=== PATIENT | female | born 1960 | race Caucasian/White ===

== ENCOUNTER → 2023-04-13 15:48 | Outpatient (CLI) | payer OTHER, SELFPAY | PROVIDERS: Visit Provider Physician Assistant | DX: R35.0 Frequency of micturition (principal) | CPT/HCPCS: 87086 ==

== ENCOUNTER 2023-04-14 16:08 | Emergency (ER) | payer OTHER, SELFPAY ==
[2023-04-14 16:12] VITALS: BP 160/93; PULSE 98; RESP 16; TEMP 37; O2SAT 97; BMI 32.5
--- NOTE | 2023-04-14 16:21 | ED.ABDPAIN ---
HPI - Abdominal Pain <CEDRICK Solares - Last Filed: 04/14/23 18:02> General Chief Complaint: Abdominal Pain Stated Complaint: possible kidney stone wc suggested to come for ct Time Seen by Provider: 04/14/23 16:20 Source: patient Mode of arrival: Ambulatory History of Present Illness HPI narrative: 63-year-old female, former smoker, presents to the emergency department with right flank pain x1 week with incontinence dark urine x4 days. Patient thought that she had initially strained her back during an exercise class. Patient presented to the walk-in clinic yesterday, urine dip revealed positive blood, and was told to come to the emergency department for kidney stone workup. No history of kidney stones. Related Data Home Medications Medication Instructions Recorded Confirmed levothyroxine 112 mcg capsule 112 mcg PO DAILY 04/13/23 04/13/23 (Tirosint) Previous Rx's Medication Instructions Recorded nitrofurantoin 100 mg PO Q12H 5 days #10 caps 04/14/23 monohydrate/macrocrystals 100 mg capsule (Macrobid) Allergies Allergy/AdvReac Type Severity Reaction Status Date / Time latex Allergy Verified 04/13/23 15:38 codeine AdvReac Verified 04/13/23 15:38 Review of Systems <CEDRICK Solares - Last Filed: 04/14/23 18:02> Review of Systems Narrative: Narrative: See HPI. GENERAL: Denies chills, fatigue, fever, sweats. HEENT: Denies sinus pain, ear pain, sore throat, difficulty swallowing, dizziness. RESPIRATORY: Denies dyspnea, cough, wheezing, sputum. CARDIOVASCULAR: Denies chest pain, palpitations, edema. GASTROINTESTINAL: Denies nausea, vomiting, abdominal pain, diarrhea, constipation. : Denies dysuria, frequency, urinary retention, vaginal itching, bleeding or discharge. Endorses incontinence, hematuria and right flank pain that is radiating to right groin. MSK: Denies weakness, joint pain, or bony pain. SKIN: Denies rash, skin lesions, or pruritis. NEUROLOGIC: Denies weakness, dizziness, headache, numbness, confusion. PSYCHIATRIC: No concerning psychosocial issues. Patient History <CEDRICK Solares - Last Filed: 04/14/23 18:02> Social History Smoking Status: Former smoker Smoking Status: Former smoker Substance Use Type: does not use Exam <CEDRICK Solares - Last Filed: 04/14/23 18:02> Narrative Exam Narrative: Exam Narrative: GENERAL: This is a well-nourished, well-developed patient, in no acute distress. HEAD: Atraumatic. Normocephalic. EYES: Pupils equal round and reactive. Extraocular motions intact. No scleral icterus, injection or drainage. ENT: Nose without bleeding, purulent drainage. Throat without erythema, tonsillar hypertrophy or exudate. Uvula midline. Airway patent. NECK: Trachea midline. No JVD. CARDIOVASCULAR: Regular rate and rhythm without murmurs, peripheral pulses intact, cap refill <2 sec. RESPIRATORY: Breath sounds equal and clear bilaterally. No wheezes, rales, or rhonchi. No cough. No increased respiratory effort. No accessory muscle use. GASTROINTESTINAL: Abdomen soft, mild right lower quadrant tenderness, nondistended without guarding or rebound. No suprapubic pain. No CVA tenderness. MSK: Moves all extremities. Normal range of motion, no clubbing or edema. Neurovascularly intact. NEURO: A&O x 3. SKIN: Warm, dry, no rashes or lesions noted. Initial Vital Signs Initial Vital Signs: Vital Signs Temperature 98.6 F 04/14/23 16:12 Pulse Rate 98 H 04/14/23 16:12 Respiratory Rate 16 04/14/23 16:12 Blood Pressure 160/93 H 04/14/23 16:12 Pulse Oximetry 97 04/14/23 16:12 Oxygen Delivery Method Room Air 04/14/23 16:12 Reviewed <Anel Singer DO - Last Filed: 04/15/23 07:51> Initial Vital Signs Initial Vital Signs: Vital Signs Temperature 98.6 F 04/14/23 16:12 Pulse Rate 98 H 04/14/23 16:12 Respiratory Rate 16 04/14/23 16:12 Blood Pressure 160/93 H 04/14/23 16:12 Pulse Oximetry 97 04/14/23 16:12 Oxygen Delivery Method Room Air 04/14/23 16:12 Course <CEDRICK Solares - Last Filed: 04/14/23 18:02> Orders Ordered: Discontinued Medications Nitrofurantoin Macrocrystals (Nitrofurantoin Er 100 Mg Capsule) 100 mg PO NOW ONE Stop: 04/14/23 18:13 Last Admin: 04/14/23 18:16 Dose: 100 mg Documented By: SPF Ondansetron HCl (Ondansetron 4 Mg Odt) 4 mg PO NOW PRN PRN Reason: Nausea And Vomiting Ondansetron HCl (Ondansetron 4 Mg/2 Ml Inj) 4 mg IV NOW PRN PRN Reason: Nausea And Vomiting Vital Signs Vital signs: Vital Signs - 8 hr 04/14/23 16:12 04/14/23 17:31 04/14/23 17:31 Temperature 98.6 F Pulse Rate 98 H 87 Respiratory Rate 16 Blood Pressure 160/93 H 181/93 H Pulse Oximetry 97 98 Oxygen Delivery Method Room Air Room Air <Anel Singer DO - Last Filed: 04/15/23 07:51> Orders Ordered: Discontinued Medications Nitrofurantoin Macrocrystals (Nitrofurantoin Er 100 Mg Capsule) 100 mg PO NOW ONE Stop: 04/14/23 18:13 Last Admin: 04/14/23 18:16 Dose: 100 mg Documented By: SPF Ondansetron HCl (Ondansetron 4 Mg Odt) 4 mg PO NOW PRN PRN Reason: Nausea And Vomiting Ondansetron HCl (Ondansetron 4 Mg/2 Ml Inj) 4 mg IV NOW PRN PRN Reason: Nausea And Vomiting Vital Signs Vital signs: Vital Signs - 8 hr 04/14/23 16:12 04/14/23 17:31 04/14/23 17:31 Temperature 98.6 F Pulse Rate 98 H 87 Respiratory Rate 16 Blood Pressure 160/93 H 181/93 H Pulse Oximetry 97 98 Oxygen Delivery Method Room Air Room Air MDM - Abdominal Pain <CEDRICK Solares - Last Filed: 04/14/23 18:02> Differential Diagnosis Differential diagnosis: Likely abdominal pain, acute appendicitis, calculus of kidney, small bowel obstruction and other (uti, pyelonephritis) Lab Data 04/14/23 16:45 04/14/23 16:45 Labs: Lab Results 04/14/23 Range/Units 16:45 WBC 10.4 (4.5-11.0) X10^3/uL RBC 4.61 (4.0-5.2) X10^6/uL Hgb 13.9 (12.0-16.0) g/dL Hct 40.3 (36-46) % MCV 87.5 (80-100) fL MCH 30.2 (26-34) PG MCHC 34.5 (30-36) % RDW 12.8 (11.6-14.8) % Plt Count 222 (150-400) X10^3/uL Neut % (Auto) 76.0 H (50-75) % Lymph % (Auto) 15.6 L (25-40) % Crowley % (Auto) 6.1 (3-14) % Eos % (Auto) 1.8 L (2-4) % Baso % (Auto) 0.5 (0-2) % Neut # (Auto) 7900 H (3055-4650) /uL Lymph # (Auto) 1600 (3932-9013) /uL Crowley # (Auto) 600 (0-900) /uL Eos # (Auto) 200 (0-450) /uL Baso # (Auto) 0 (0-100) /uL Sodium 137 (137-145) mmol/L Potassium 3.9 (3.4-5.1) mmol/L Chloride 107 (98-107) mmol/L Carbon Dioxide 22 (22-32) mmol/L BUN 16 (7-17) mg/dL Creatinine 0.64 (0.52-1.04) mg/dL Estimated GFR > 60 (>60) mL/min BUN/Creatinine Ratio 25.0 H (6-22) Glucose 94 (80-110) mg/dL Calcium 9.0 (8.4-10.2) mg/dL Total Bilirubin 0.3 (0.2-1.3) mg/dL AST 42 H (14-36) IU/L ALT 47 H (<35) IU/L Alkaline Phosphatase 91 (38-126) U/L Total Protein 6.7 (6.3-8.2) g/dL Albumin 4.1 (3.5-5.0) g/dL Globulin 2.6 (1.7-4.1) g/dL Albumin/Globulin Ratio 1.6 (1.0-2.8) Lipase 73 (23-300) U/L TSH 0.07 L (0.47-4.68) uIU/mL Free T4 1.40 (0.78-2.19) ng/dL Urine RBC 5-10/hpf H (0-5/HPF) Urine WBC 5-10/hpf H (0-5/HPF) Ur Squamous Epith Cells 0-1 /hpf (0-5/HPF) Calcium Oxalate Crystal Few H Urine Bacteria Occasional (0-1) (None) Urine Mucus 1+ H (Negative) Ur Culture Indicated? Specimen cultured Point of care testing: Urine Dip Bedside Urine Glucose Negative Bedside Urine Bilirubin - Negative Bedside Urine Ketone - Negative Urine Specific Bradley 1.015 Bedside Urine Occult Blood +++ Bedside Urine pH 6.0 Bedside Urine Protein +/- 15 Bedside Urine Urobilinogen - Negative Bedside Urine Nitrite - Negative Bedside Urine Leukocytes + [address] scan - abdomen/pelvis: Radiologist's Impression: [address] [address] [address] Scan Report Signed Patient: Tanya Bran MR#: [id number] : 1960 Acct:[id number] Age/Sex: 63 / F Date of Service: 04/14/23 Loc: ED Accession Number: [id number] Procedure: CT abdomen pelvis w con Ordering Provider: Deo Gallegos PROCEDURE: CT ABDOMEN PELVIS W CON INDICATIONS: 63-year-old female with 3 day history of incontinence, hematuria, right flank pain. History of hysterectomy, thyroid cancer 2017 TECHNIQUE: After the administration of intravenous contrast, axial sections acquired from the lung bases to the pubic symphysis. Coronal and sagittal reformats were performed. For radiation dose reduction, the following was used: automated exposure control, adjustment of mA and/or kV according to patient size. COMPARISON: None. FINDINGS: Lower thorax: The lung bases are clear. Heart size normal. No hiatal hernia. Liver: Normal in size and attenuation. No contour deformity present. Biliary system: No calcified cholelithiasis or pericholecystic inflammation. No intra or extrahepatic bile duct dilatation. Pancreas: Unremarkable without mass or inflammation evident. Spleen: Normal in size and density. Adrenals: Normal morphology and density. Reproductive system: Hysterectomy. Urinary system: Normal renal size and attenuation. No renal calculi, hydronephrosis, or solid mass present. Urinary bladder unremarkable. Gastrointestinal system: The bowel is unremarkable without evidence of bowel obstruction or inflammation. The stomach appears unremarkable. Multiple diverticula arise from the sigmoid colon without evidence of diverticulitis. Appendix: Normal appendix identified. No evidence of appendicitis. Peritoneal spaces: No mesenteric or retroperitoneal adenopathy. No free air. No free fluid. Vasculature: The IVC, aorta and iliac vasculature are unremarkable. Abdominal wall: Abdominal wall intact without evidence of ventral or inguinal hernias. Musculoskeletal: Normal bone mineralization. Degenerative disc disease and arthropathy noted in lower lumbar spine. No acute fractures. IMPRESSION: 1. No acute CT findings in the abdomen and pelvis. Normal appendix. No obstructive uropathy or nephrolithiasis. Approved by: Janes Loredo M.D. on 04/14/2023 at 16:17 MDM Narrative Medical decision making narrative: 63-year-old female with radiating right flank pain and incontinence x4 days. Assessment was inconclusive and not sure what is causing her discomfort. CT reveals no abnormalities. Baseline labs were not concerning. Point of care urine dip was consistent with UTI, positive blood and leuks. Will treat with Macrobid for 5 days. Discussed plan of care and return precautions with patient, who verbalized understanding and was agreeable with course of action. <Anel Singer, DO - Last Filed: 04/15/23 07:51> Lab Data Labs: Lab Results 04/14/23 Range/Units 16:45 WBC 10.4 (4.5-11.0) X10^3/uL RBC 4.61 (4.0-5.2) X10^6/uL Hgb 13.9 (12.0-16.0) g/dL Hct 40.3 (36-46) % MCV 87.5 (80-100) fL MCH 30.2 (26-34) PG MCHC 34.5 (30-36) % RDW 12.8 (11.6-14.8) % Plt Count 222 (150-400) X10^3/uL Neut % (Auto) 76.0 H (50-75) % Lymph % (Auto) 15.6 L (25-40) % Crowley % (Auto) 6.1 (3-14) % Eos % (Auto) 1.8 L (2-4) % Baso % (Auto) 0.5 (0-2) % Neut # (Auto) 7900 H (7562-7739) /uL Lymph # (Auto) 1600 (9398-2610) /uL Crowley # (Auto) 600 (0-900) /uL Eos # (Auto) 200 (0-450) /uL Baso # (Auto) 0 (0-100) /uL Sodium 137 (137-145) mmol/L Potassium 3.9 (3.4-5.1) mmol/L Chloride 107 (98-107) mmol/L Carbon Dioxide 22 (22-32) mmol/L BUN 16 (7-17) mg/dL Creatinine 0.64 (0.52-1.04) mg/dL Estimated GFR > 60 (>60) mL/min BUN/Creatinine Ratio 25.0 H (6-22) Glucose 94 (80-110) mg/dL Calcium 9.0 (8.4-10.2) mg/dL Total Bilirubin 0.3 (0.2-1.3) mg/dL AST 42 H (14-36) IU/L ALT 47 H (<35) IU/L Alkaline Phosphatase 91 (38-126) U/L Total Protein 6.7 (6.3-8.2) g/dL Albumin 4.1 (3.5-5.0) g/dL Globulin 2.6 (1.7-4.1) g/dL Albumin/Globulin Ratio 1.6 (1.0-2.8) Lipase 73 (23-300) U/L TSH 0.07 L (0.47-4.68) uIU/mL Free T4 1.40 (0.78-2.19) ng/dL Urine RBC 5-10/hpf H (0-5/HPF) Urine WBC 5-10/hpf H (0-5/HPF) Ur Squamous Epith Cells 0-1 /hpf (0-5/HPF) Calcium Oxalate Crystal Few H Urine Bacteria Occasional (0-1) (None) Urine Mucus 1+ H (Negative) Ur Culture Indicated? Specimen cultured Point of care testing: Urine Dip Bedside Urine Glucose Negative Bedside Urine Bilirubin - Negative Bedside Urine Ketone - Negative Urine Specific Bradley 1.015 Bedside Urine Occult Blood +++ Bedside Urine pH 6.0 Bedside Urine Protein +/- 15 Bedside Urine Urobilinogen - Negative Bedside Urine Nitrite - Negative Bedside Urine Leukocytes + 70 Esterase Discharge Plan Departure Patient Disposition: Home Clinical Impression: UTI (urinary tract infection) Qualifiers: Urinary tract infection type: acute cystitis Hematuria presence: with hematuria Qualified Code(s): N30.01 - Acute cystitis with hematuria Instructions: DI for Urinary Tract Infection (UTI) Activity Restrictions/Additional Instructions: *You have been diagnosed with a urinary tract infection. Point of care urine dip was consistent with UTI and we will treat you with Macrobid for [address] was normal and no sign of appendicitis or kidney stones. Please make sure you drink plenty of water and take the antibiotics as prescribed. For any worsening symptoms that include chest pain, shortness of breath, intolerable pain, etc. please return to the emergency department. Otherwise, please follow-up with your family doctor as needed. *What to do: *Please continue to take your regular medications as directed. [x ] New medication prescriptions sent to your pharmacy: [[facility]] [ ] New medication written as a paper prescription [ ] No new medications given *Please follow up with your primary care provider in 2-3 days, call for an appointment. Let them know you were seen in the Emergency Department and that we ask that you be seen in follow up. We will electronically transmit a record of today's note if your PCP is in our system *If you do not have a primary care provider please contact the [facility] Resource line at [phone]. They will ask some questions about your medical history and help get you set up with a doctor in the community. ? Return to ER if you should have any new, worsening or concerning symptoms, such as worsening pain, severe headache, confusion, chest pain, difficulty breathing, fever greater than 101 F, shaking chills, persistent vomiting to the point that you cannot drink fluids, or other new or worsening symptoms. Prescriptions: New nitrofurantoin monohyd/m-cryst [Macrobid] 100 mg capsule 100 mg PO Q12H 5 Days Qty: 10 0RF Rx Instructions: must administer with a meal/food No Action levothyroxine [Tirosint] 112 mcg capsule 112 mcg PO DAILY Referrals: Miscellaneous,DoctorMD [Primary Care Provider] - Stand Alone Forms: Patient Portal/API ED Sign-out <Anel Singer DO - Last Filed: 04/15/23 07:51> Cosign ED Attending Mendelature Attestation: I was immediately available in the department for consultation. Documentation has been reviewed.
--- NOTE | 2023-04-14 16:31 | DI.CT.S_ITS ---
PROCEDURE: CT ABDOMEN PELVIS W CON INDICATIONS: 63-year-old female with 3 day history of incontinence, hematuria, right flank pain. History of hysterectomy, thyroid cancer 2017 TECHNIQUE: After the administration of intravenous contrast, axial sections acquired from the lung bases to the pubic symphysis. Coronal and sagittal reformats were performed. For radiation dose reduction, the following was used: automated exposure control, adjustment of mA and/or kV according to patient size. COMPARISON: None. FINDINGS: Lower thorax: The lung bases are clear. Heart size normal. No hiatal hernia. Liver: Normal in size and attenuation. No contour deformity present. Biliary system: No calcified cholelithiasis or pericholecystic inflammation. No intra or extrahepatic bile duct dilatation. Pancreas: Unremarkable without mass or inflammation evident. Spleen: Normal in size and density. Adrenals: Normal morphology and density. Reproductive system: Hysterectomy. Urinary system: Normal renal size and attenuation. No renal calculi, hydronephrosis, or solid mass present. Urinary bladder unremarkable. Gastrointestinal system: The bowel is unremarkable without evidence of bowel obstruction or inflammation. The stomach appears unremarkable. Multiple diverticula arise from the sigmoid colon without evidence of diverticulitis. Appendix: Normal appendix identified. No evidence of appendicitis. Peritoneal spaces: No mesenteric or retroperitoneal adenopathy. No free air. No free fluid. Vasculature: The IVC, aorta and iliac vasculature are unremarkable. Abdominal wall: Abdominal wall intact without evidence of ventral or inguinal hernias. Musculoskeletal: Normal bone mineralization. Degenerative disc disease and arthropathy noted in lower lumbar spine. No acute fractures. IMPRESSION: 1. No acute CT findings in the abdomen and pelvis. Normal appendix. No obstructive uropathy or nephrolithiasis. Approved by: Janes Loredo M.D. on 04/14/2023 at 16:17
[2023-04-14 17:17] LABS: Alanine Aminotransferase 47 IU/L (<35); Albumin 4.1 g/dL (3.5-5.0); Albumin Globulin Ratio 1.6 (1.0-2.8); Alkaline Phosphatase 91 U/L (38-126); Aspartate Aminotransferase 42 IU/L (14-36); Bilirubin Total 0.3 mg/dL (0.2-1.3); Blood Urea Nitrogen 16 mg/dL (7-17); Carbon Dioxide 22 mmol/L (22-32); Chloride 107 mmol/L (98-107); Estimated Glomerular Filt Rate > 60 mL/min (>60); Globulin 2.6 g/dL (1.7-4.1); Glucose 94 mg/dL (80-110); HEMOLYSIS 41 (0-50); Lipase 73 U/L (23-300); Potassium 3.9 mmol/L (3.4-5.1); Sodium 137 mmol/L (137-145); Total Protein 6.7 g/dL (6.3-8.2)
[2023-04-14 17:21] LABS: Add Manual Diff / Slide Review NO; Basophils Absolute Auto 0 /uL (0-100); Basophils Percent Auto 0.5 % (0-2); Eosinophils Absolute Auto 200 /uL (0-450); Eosinophils Percent Auto 1.8 % (2-4); Hematocrit 40.3 % (36-46); Hemoglobin 13.9 g/dL (12.0-16.0); Lymphocytes Absolute Auto 1600 /uL (1100-4500); Lymphocytes Percent Auto 15.6 % (25-40); Mean Corpuscular HGB Conc 34.5 % (30-36); Mean Corpuscular Hemoglobin 30.2 PG (26-34); Mean Corpuscular Volume 87.5 fL (80-100); Monocytes Absolute Auto 600 /uL (0-900); Monocytes Percent Auto 6.1 % (3-14); Neutrophils Absolute Auto 7900 /uL (1500-7000); Platelet Count 222 X10^3/uL (150-400); Red Blood Cell Count 4.61 X10^6/uL (4.0-5.2); Red Cell Distribution Width 12.8 % (11.6-14.8); White Blood Cell Count 10.4 X10^3/uL (4.5-11.0)
[2023-04-14 17:31] VITALS: BP 181/93; PULSE 87; O2SAT 98
[2023-04-14 18:00] VITALS: PULSE 80; O2SAT 98
[2023-04-14 18:05] LABS: Bacteria Urine Occasional (0-1); Calcium Oxalate Crystals Urine Few; RBC Urine 5-10/HPF (0-5/HPF); Squamous Epithelial Cell Urine 0-1 /HPF (0-5/HPF); WBC Urine 5-10/HPF (0-5/HPF)
[2023-04-14 18:06] LABS: Culture Indicated Urine Specimen Cultured; Mucus Urine 1+ (Negative)
[2023-04-14 18:09] LABS: TSH w/ Reflex to FT4 0.07 uIU/mL (0.47-4.68)
[2023-04-14] MEDS: NITROFURANTOIN ER 100 MG CAPSULE PO (18:16)
[2023-04-14 18:18] VITALS: BP 182/110; PULSE 87; O2SAT 98
[2023-04-14 18:20] VITALS: BP 172/107; PULSE 86; O2SAT 98
[2023-04-14 18:30] VITALS: BP 172/107
== END 2023-04-14 18:30 | disposition home or self-care (01) ==
PROVIDERS: Emergency Medicine; Emergency Provider Registered Nurse
DX: N30.01 Acute cystitis with hematuria (principal)
CPT/HCPCS: 36415; 74177; 80053; 81003; 81015; 83690; 84439; 84443; 85025; 87077; 87086; 87147; 93005; 93010; 99284; Q9967